=== PATIENT | female | born 1965 | race Caucasian/White ===

== ENCOUNTER → 2024-04-13 07:51 | Outpatient (REF) | payer BC, SELFPAY ==
[2024-04-13 09:53] LABS: ALT (SGPT) 22 U/L (0-35); AST (SGOT) 21 U/L (14-36); Albumin 4.3 g/dl (3.5-5.0); Alkaline Phosphatase 66 U/L (38-126); Blood Urea Nitrogen 24 mg/dl (7-17); Calcium 10.1 mg/dl (8.4-10.2); Carbon Dioxide 31 mmol/L (22-30); Chloride 102 mmol/L (98-107); Glucose 96 mg/dl (70-99); Potassium 5.1 mmol/L (3.5-5.1); Sodium 139 mmol/L (135-145); Total Bilirubin 0.6 mg/dl (0.2-1.3); Total Protein 6.8 g/dl (6.3-8.2); eGFR > 60.00
[2024-04-13 09:55] LABS: % Basophils 1.3 % (0-2); % Eosinophils 3.5 % (0-6); % Immature Granulocytes 0.2 % (0-0.5); % Monocytes 10.2 % (1.7-9.3); % Neutrophils 46.8 % (42.2-75.2); Absolute Basophils 0.1 10^3/uL (0-0.2); Absolute Eosinophils 0.2 10^3/uL (0-0.7); Absolute Lymphocytes 1.8 10^3/uL (1.2-3.4); Absolute Monocytes 0.5 10^3/uL (0.1-0.6); Absolute Neutrophils 2.2 10^3/uL (1.4-6.5); Hematocrit 41.6 % (37.0-47.0); Hemoglobin 13.8 g/dL (12.0-16.0); Mean Corp Hgb Conc. 33.2 g/dL (33.0-37.0); Mean Corpuscular Hgb 30.5 pg (27.0-31.0); Mean Corpuscular Volume 91.8 fL (81.0-99.0); Mean Platelet Volume 9.4 fL (7.4-10.4); Nucleated Red Blood Cells % 0 %; Platelet Count 333 10^3/uL (130-400); Red Blood Cell Count 4.53 10^6/uL (4.20-5.40); Red Cell Dist. Width 14.1 % (11.5-14.5); White Blood Cell Count 4.6 10^3/uL (4.8-10.8)
== END ==
LOC: HWRAD 07:51
PROVIDERS: ATTENDING PHYSICIAN Otolaryngology Facial Plastic Surgery; FAMILY PHYSICIAN Nurse Practitioner Primary Care
DX: J32.3 Chronic sphenoidal sinusitis (principal); J30.1 Allergic rhinitis due to pollen; H90.3 Sensorineural hearing loss, bilateral; Z01.818 Encounter for other preprocedural examination
CPT/HCPCS: 36415; 70486; 80053; 85025; 93005